=== PATIENT | female | born 1970 | race Caucasian/White ===

== ENCOUNTER 2016-12-01 20:39 | Emergency (ER) | payer SELFPAY ==
[~2016-12-01] VITALS: Ht 165.1 cm; Wt 112.0 kg
[2016-12-01 20:45] VITALS: Ht 165.1 cm; Wt 112.0 kg
== END 2016-12-02 00:51 | disposition left against medical advice (07) ==
LOC: E/R 20:39
DX: Z53.21 Procedure and treatment not carried out due to patient leaving prior to being seen by health care provider (principal)